=== PATIENT | male | born 2000 | race Caucasian/White ===

== ENCOUNTER 2022-07-20 08:43 | Emergency (ER) | payer MEDICAID, OTHER, SELFPAY ==
[2022-07-20] VITALS (9 sets, daily range): BP systolic 138–178; BP diastolic 74–101; PULSE 95–113; RESP 18; TEMP 36.7–36.9; O2SAT 98–100
--- NOTE | 2022-07-20 08:56 | PC.NURSE ---
WARM BLANKET PROVIDED
--- NOTE | 2022-07-20 09:01 | PC.NURSE ---
HUGH ELLIOTT at for patient eval
--- NOTE | 2022-07-20 09:02 | PC.NURSE ---
DR MARIN AT BEDSIDE
--- NOTE | 2022-07-20 09:04 | CT_ITS ---
FINAL REPORT TECHNIQUE: Postcontrast axial images through the abdomen and pelvis were performed. This study was performed with techniques to keep radiation doses as low as reasonably achievable, (ALARA). Individualized dose reduction techniques using automated exposure control or adjustment of mA and/or kV according to the patient's size were employed. CLINICAL HISTORY: abdo pain, vomiting FINDINGS: Abdomen: The lung bases are clear. The liver is normal in size and attenuation. The spleen is unremarkable. The adrenals are normal. The pancreas is unremarkable. The kidneys enhance appropriately. The aorta is normal in caliber. No free fluid or adenopathy is identified. No findings for mechanical bowel obstruction are identified. Pelvis: The appendix is not clearly identified. There is mild prominence of the mucosa in the colon which could be infectious, inflammatory, or simply related to decompressed bowel. The urinary bladder is unremarkable. No free fluid, free air, abscess or adenopathy is identified. IMPRESSION: Prominence of the mucosa in the colon as detailed above. Reviewed, Interpreted and Dictated by Zi Lee MD Transcribed by Flakita Pulido Authenticated and [facility]
--- NOTE | 2022-07-20 09:05 | [facility].EDGENADL ---
Discharge Plan Disposition Patient Disposition: Home, Self-Care Condition: Good Prescriptions Prescriptions: New ondansetron 4 mg tablet,disintegrating 4 mg PO Q8H PRN (Reason: nausea and vomiting) Qty: 10 0RF No Action omeprazole 20 mg Tablet,Delayed Release (Dr/Ec) 20 mg PO DAILY Referrals Follow up/Referrals: Provider,Referral, [Primary Care Provider] - See instructions Activity Restrictions/Add. Instructions Additional Instructions/Restrictions: Zofran as needed for nausea and vomiting. Continue taking omeprazole. Follow-up with your primary care provider when you return home. Return to emergency department if worsening. Additional instructions for ABDOMINAL PAIN: See your physician as soon as possible for further evaluation. Return immediately if worsening abdominal pain, vomiting, shortness of breath, fever, vomiting of blood or abdominal distention. Clinical Impressions Clinical Impression: Abdominal pain, Vomiting Instructions Patient Instructions: DI for Abdominal Pain-Adult, DI for Vomiting -- Adult Discharge ED Provider: Darrick Ramos General Adult HPI General Chief complaint: Nausea/Vomiting/Diarrhea Stated complaint: Vomiting abd pain Time Seen by Provider: 07/20/22 09:00 History of Present Illness HPI narrative: Complains of intractable vomiting since 7 PM last night. Generalized abdominal pain. States he has had recurrent episodes like this in the past and has been diagnosed with an ulcer by endoscopy several years ago. 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 He takes omeprazole. No diarrhea. No fever. No prior abdominal surgeries. No chronic medical problems otherwise. He is a smoker. Nondrinker. Admits to marijuana use, no other drug use. He is from [place], is here working. Related Data Home Medications Medication Instructions Recorded Confirmed omeprazole 20 mg tablet,delayed 20 mg PO DAILY Reflux/Acid reflux 07/20/22 07/20/22 release Previous Rx's Medication Instructions Recorded ondansetron 4 mg disintegrating 4 mg PO Q8H PRN nausea and 07/20/22 tablet vomiting #10 tabs Allergies Allergy/AdvReac Type Severity Reaction Status Date / Time No Known Allergies Allergy Verified 07/20/22 08:57 [facility] Disclaimer: The information contained in this section may have been updated after the patient was seen, as this information can be updated by other users. Medical History (Updated 07/20/22 @ 12:54 by Darrick Ramos MD) Gastric ulcer Family History (Updated 07/20/22 @ 09:41 by Clara Hernandez RN) Other No significant family history Social History (Updated 07/20/22 @ 09:41 by Clara Hernandez, RN) Smoking Status: Current every day smoker alcohol intake: never current occupational status: employed Travel in the last 8 weeks: Inside the [place] ROS Obtained: Yes Systems reviewed as appropriate & no additional complaints except as documented Constitutional Constitutional: Denies fever(s), Denies headache(s) and Denies weakness ENT Ears, Nose, Mouth, and Throat: Denies headache(s), Denies nasal discharge and Denies sore throat Cardiovascular Cardiovascular: Denies chest pain Respiratory Respiratory: Denies shortness of breath and Denies cough Gastrointestinal Gastrointestingal: Reports abdominal pain, nausea and vomiting; Denies constipation or diarrhea Genitourinary Male Genitourinary: Denies difficulty urinating and Denies flank pain Musculoskeletal Musculoskeletal: Denies numbness Neurologic Neurologic: Denies headache(s), Denies numbness and Denies weakness Physical Exam General General appearance: alert and in no apparent distress Head Head exam: atraumatic and normocephalic Eye Eye exam: Present normal appearance and EOMI ENT ENT exam: Present mucous membranes moist Neck Neck exam: Present normal inspection and trachea midline Chest Chest inspection: Present
--- NOTE | 2022-07-20 09:15 | PC.NURSE ---
PT TO CT VIA WC AT THIS TIME
[2022-07-20 09:22] LABS: Basophils # 0.1 K/mm3 (0-0.2); Basophils % 0.5 % (0.1-2.0); Eosinophils # 0.1 K/mm3 (0.0-0.4); Eosinophils % 0.5 % (0.1-12.0); Hematocrit 47.8 % (42.0-52.0); Hemoglobin 15.9 g/dL (14.1-18.0); Lymphocytes # 0.9 K/mm3 (0.7-4.5); Lymphocytes % 6.1 % (10-50); Mean Corpuscular HGB Conc 33.3 g/dL (31.8-35.4); Mean Corpuscular Hemoglobin 29.2 pg (27.0-31.2); Mean Corpuscular Volume 87.5 fl (80-94); Mean Platelet Volume 7.6 fl (7.4-10.4); Monocytes # 0.2 K/mm3 (0.1-1.0); Monocytes % 1.6 % (1.7-9.3); Neutrophils # 13.5 K/mm3 (1.8-7.8); Neutrophils % 91.3 % (37.0-80.0); Platelet Count 437 K/mm3 (142-424); Red Blood Count 5.46 M/mm3 (4.60-6.20); Red Cell Distribution Width 14.1 % (11.5-17.5); White Blood Count 14.8 K/mm3 (4.8-10.8)
[2022-07-20 09:24] LABS: MANUAL DIFFERENTIAL MANUAL DIFFERENTIAL (MANUAL DIFF)
--- NOTE | 2022-07-20 09:27 | PC.NURSE ---
PT RETURNED FROM CT
[2022-07-20 09:28] LABS: Chloride 107 mmol/L (98-107); Potassium 4.2 mmoL/L (3.5-5.1); Sodium 148 mmol/L (136-145)
[2022-07-20 09:31] LABS: Alanine Aminotransferase 34 U/L (12-78); Albumin Level 5.7 g/dl (3.5-5.0); Albumin/Globulin Ratio 1.4 (1.1-1.8); Alkaline Phosphatase 115 U/L (38-126); Anion Gap 15.2 mEq/L (5-15); Aspartate Amino Transferase 47 U/L (17-59); Bilirubin,Total 0.6 mg/dl (0.2-1.3); Blood Urea Nitrogen 20 mg/dl (9-20); Carbon Dioxide 30 mmol/L (22.0-30.0); Creatinine Clearance Estimated 131 mL/min (50-200); Estimated Glomerular Filt Rate 105 ml/min (>60); GFR (African American) 127 ML/MIN (>60); Glucose 166 mg/dl (74-100); Lipase 40 U/L (23-300); Total Protein,Serum 9.7 g/dl (6.3-8.2)
[2022-07-20 09:49] LABS: Lymphocytes % 4 % (10-50); Monocytes % 2 % (2-9); Neutrophils % 94 % (42-76); Platelet Estimate Slight Increase; RBC Morphology Normal; Total Cells Counted 100
[2022-07-20 10:51] LABS: Microscopic, Urine URINE MICROSCOPIC (MICROSCOPIC)
[2022-07-20 11:07] LABS: Appearance,Urine CLEAR (Clear); Blood, Urine 2+ (Negative); Color,Urine YELLOW (Yellow); Glucose,Urine (UA) Negative (Negative); Ketones,Urine 2+ (Negative); Leukocyte Esterase,Urine Negative (Negative); Nitrate,Urine Negative (Negative); Protein,Urine 2+ (Negative); Specific Gravity, Urine 1.015 (1.005-1.030); Urobilinogen,Urine 0.2 EU/dl (0.2)
--- NOTE | 2022-07-20 11:18 | PC.NURSE ---
ROUNDED ON PT AT THIS TIME, PT REPORTS SOME HELP FROM PAIN MEDICATION
[2022-07-20 11:21] LABS: Benzodiazepines Screen,Urine Negative ng/ml (<200)
[2022-07-20 11:22] LABS: Amphetamine/Metha Screen,Urine Negative ng/ml (<1000); Barbiturates Screen,Urine Negative ng/ml (<200); Bilirubin,Urine Negative (Negative)
[2022-07-20 11:23] LABS: Cannabinoid Screen,Urine Positive ng/ml (<50)
[2022-07-20 11:24] LABS: Cocaine Screen,Urine Positive ng/ml (<300); Methadone Screen,Urine Negative ng/ml (<300)
[2022-07-20 11:25] LABS: Opiate Screen,Urine Negative ng/ml (<300); Phencyclidine Screen,Urine Negative ng/ml (<25)
[2022-07-20 11:56] LABS: Squamous Epithelial Cell,Urine Occasional #/hpf (0-5); WBC,Urine Occasional #/hpf (0-3)
--- NOTE | 2022-07-20 12:00 | PC.NURSE ---
Rounded on pt, pt sleeping on ed stretcher at this time with lights out. Call light within reach
--- NOTE | 2022-07-20 12:43 | PC.NURSE ---
DR MARIN AT BEDSIDE FOR REEVALUATION
== END 2022-07-20 13:05 | disposition home or self-care (01) ==
PROVIDERS: Emergency Provider Emergency Medicine
DX: R10.84 Generalized abdominal pain (principal); R11.2 Nausea with vomiting, unspecified; R19.7 Diarrhea, unspecified; F17.210 Nicotine dependence, cigarettes, uncomplicated; K25.9 Gastric ulcer, unspecified as acute or chronic, without hemorrhage or perforation
CPT/HCPCS: 74177; 80053; 80305; 81001; 83690; 85007; 85025; 96361; 96374; 96375; 96376; 99285; J2405; Q9967